=== PATIENT | male | born 1945 | race Caucasian/White ===

== ENCOUNTER 2017-08-06 18:47 | Inpatient (IN) | payer OTHER, MEDICARE ==
[~2017-08-06] VITALS: Ht 182.9 cm; Wt 147.4 kg
[2017-08-06 19:38] LABS: BASOPHILS % 0.4 % (0.0-1.0); EOSINOPHILS % 0.5 % (0.0-6.0); HEMATOCRIT 44.4 % (38.2-49.6); HEMOGLOBIN 15.3 g/dL (14.0-18.0); LYMPHOCYTES # (AUTO) 0.7 (1.0-3.2); LYMPHOCYTES % 9.3 % (18.0-39.1); MEAN CORPUSCULAR HEMOGLOBIN 32.1 pg (28-32); MEAN CORPUSCULAR HGB CONC 34.5 g/dL (31-35); MEAN CORPUSCULAR VOLUME 93.1 fL (81-99); MONOCYTES # (AUTO) 0.6 (0.2-0.8); MONOCYTES % 8.1 % (4.4-11.3); NEUTROPHILS # (AUTO) 6.2 (2.1-6.9); NEUTROPHILS % 81.4 % (38.7-80.0); PLATELET COUNT 231 x10e3/uL (140-360); RED BLOOD COUNT 4.77 x10e6/uL (4.3-5.7); RED CELL DISTRIBUTION WIDTH 12.1 % (11.7-14.4)
[2017-08-06 19:49] LABS: INR 1.06
[2017-08-06 19:57] LABS: ALANINE AMINOTRANSFERASE 26 IU/L (0-55); ALBUMIN 3.2 g/dL (3.5-5.0); ALBUMIN/GLOBULIN RATIO 0.9 (0.8-2.0); ALKALINE PHOSPHATASE 72 IU/L (40-150); ANION GAP 12.8 mmol/L (8-16); BLOOD UREA NITROGEN 10 mg/dL (7-26); BUN/CREATININE RATIO 10 (6-25); CALCIUM 9.1 mg/dL (8.4-10.2); CARBON DIOXIDE 24 mmol/L (22-29); CHLORIDE 99 mmol/L (98-107); CREATINE KINASE 82 IU/L (30-200); CREATININE, SERUM 1.05 mg/dL (0.72-1.25); EST GLOMERULAR FILTRATION RATE > 60 ML/MIN (60-); GLUCOSE 306 mg/dL (74-118); MAGNESIUM 1.4 MG/DL (1.3-2.1); POTASSIUM 3.8 mmol/L (3.5-5.1); SODIUM 132 mmol/L (136-145)
[2017-08-06] MEDS ORDERED: MORPHINE SULFATE 2 MG/ML SYR IV PRN (20:00)
[2017-08-06] MEDS ORDERED: SODIUM CHLORIDE FLUSH 10 ML SYR INJ PRN (20:00)
[2017-08-06] MEDS ORDERED: DEXTROSE 50% SYRINGE 50 ML IV PRN (20:00)
[2017-08-06] MEDS ORDERED: ONDANSETRON HCL INJ 2 MG/ML VIAL IV PRN (20:00)
[2017-08-06 20:04] LABS: B-TYPE NATRIURETIC PEPTIDE2 126.5 pg/mL (0-100)
[2017-08-06] MEDS: VANCOMYCIN 1GM/NS 250 ML 250 ML IV SCH (20:15)
[2017-08-06 20:17] LABS: THYROID STIMULATING HORMONE 3.021 uIU/mL (0.350-4.940)
--- NOTE | 2017-08-06 20:18 | Diagnostic Imaging Report ---
CHEST SINGLE (PORTABLE), 08/06/2017 7:02 PM Technique: CHEST SINGLE (PORTABLE) Comparison: None available. Clinical history: Per patient, elevated blood sugar Findings: See Impression Impression: Limited by portable technique and motion. 1. Prominent cardiomediastinal silhouette, accentuated by portable technique 2. No consolidation. 3. No pleural effusion or pneumothorax. Signed by: Dr Ashly Wills MD on 08/06/2017 8:14 PM
[2017-08-06] MEDS ORDERED: INSULIN LISPRO 100 UNIT/1 ML 3ML VIAL SQ SCH (20:30)
[2017-08-06 21:12] VITALS: BP 109/58
[2017-08-06 21:15] VITALS: BP 109/58
[2017-08-06] MEDS: INSULIN REGULAR, HUMAN 100 UNIT/1 ML 3ML VIAL SQ SCH (22:10)
[2017-08-06] MEDS ORDERED: SODIUM CHLORIDE 0.9% 250ML 250 ML ONE (22:40)
[2017-08-06] MEDS: PIPER-TAZ 3.375 GM 50 ML IV SCH (23:01)
[2017-08-07] VITALS (8 sets, daily range): BP systolic 108–137; BP diastolic 56–68
[2017-08-07] MEDS: PIPER-TAZ 3.375 GM 50 ML IV SCH ×3 (05:16→22:30)
[2017-08-07 05:51] LABS: CLARITY,URINE CLEAR (CLEAR); COLOR,URINE YELLOW (YELLOW)
[2017-08-07 05:52] LABS: BILIRUBIN,URINE NEGATIVE (NEGATIVE); KETONES,URINE TRACE (NEGATIVE); LEUKOCYTE ESTERASE ,URINE NEGATIVE (NEGATIVE); NITRITE,URINE NEGATIVE (NEGATIVE); PROTEIN,URINE DIPSTICK NEGATIVE (NEGATIVE); URINE UROBILINOGEN 0.2 mg/dL (0.2 - 1)
[2017-08-07 05:54] LABS: BACTERIA,URINE FEW /HPF; RBC,URINE 0-5 /HPF (0-5); WBC,URINE (MAN) 0-5 /HPF (0-5)
[2017-08-07 05:55] LABS: EPITHELIAL CELLS,URINE RARE /LPF; YEAST,URINE FEW
[2017-08-07] MEDS ORDERED: ACETAMINOPHEN 325 MG TAB PO PRN (06:00)
[2017-08-07 06:33] LABS: BASOPHILS % 0.5 % (0.0-1.0); EOSINOPHILS # (AUTO) 0.1 (0.0-0.4); EOSINOPHILS % 1.3 % (0.0-6.0); HEMATOCRIT 41.2 % (38.2-49.6); HEMOGLOBIN 13.9 g/dL (14.0-18.0); LYMPHOCYTES # (AUTO) 0.9 (1.0-3.2); LYMPHOCYTES % 14.9 % (18.0-39.1); MEAN CORPUSCULAR HEMOGLOBIN 31.7 pg (28-32); MEAN CORPUSCULAR HGB CONC 33.7 g/dL (31-35); MEAN CORPUSCULAR VOLUME 93.8 fL (81-99); MONOCYTES # (AUTO) 0.6 (0.2-0.8); MONOCYTES % 10.1 % (4.4-11.3); NEUTROPHILS # (AUTO) 4.5 (2.1-6.9); PLATELET COUNT 203 x10e3/uL (140-360); RED BLOOD COUNT 4.39 x10e6/uL (4.3-5.7); RED CELL DISTRIBUTION WIDTH 12.2 % (11.7-14.4)
[2017-08-07 06:45] LABS: ALANINE AMINOTRANSFERASE 24 IU/L (0-55); ALBUMIN 2.7 g/dL (3.5-5.0); ALBUMIN/GLOBULIN RATIO 0.9 (0.8-2.0); ALKALINE PHOSPHATASE 61 IU/L (40-150); ANION GAP 11.7 mmol/L (8-16); BLOOD UREA NITROGEN 9 mg/dL (7-26); BUN/CREATININE RATIO 10 (6-25); CALCIUM 8.4 mg/dL (8.4-10.2); CARBON DIOXIDE 26 mmol/L (22-29); CHLORIDE 101 mmol/L (98-107); CREATININE, SERUM 0.92 mg/dL (0.72-1.25); EST GLOMERULAR FILTRATION RATE > 60 ML/MIN (60-); GLUCOSE 201 mg/dL (74-118); POTASSIUM 3.7 mmol/L (3.5-5.1); SODIUM 135 mmol/L (136-145)
[2017-08-07] MEDS: INSULIN REGULAR, HUMAN 100 UNIT/1 ML 3ML VIAL SQ SCH ×4 (07:30→21:00)
[2017-08-07] MEDS: VANCOMYCIN 1GM/NS 250 ML 250 ML IV SCH ×2 (08:14→20:30)
[2017-08-07] MEDS: GLIMEPIRIDE 2 MG TAB PO SCH (08:14)
--- NOTE | 2017-08-07 15:48 | Consultation ---
DATE OF CONSULTATION: REASON FOR CONSULTATION: Cellulitis of the legs. HISTORY OF PRESENT ILLNESS: This patient, who is a 71-year-old white male, who has a history of obesity, history of lymphedema, history of venous stasis ulcers before, recurrent cellulitis of bilateral lower extremities before, comes in with redness and swelling of his legs with ulcers and drainage. This is the worst time he has ever had this. This patient has obesity, diabetes mellitus, history of cellulitis and venostasis before. He comes in with the above complaint, which has been going on for the last few days. The patient was sent to the emergency room where he was admitted. The patient is lying in bed comfortably at the present time. His is at the bedside. PAST MEDICAL HISTORY: Obesity and diabetes mellitus as above. PAST SURGICAL HISTORY: Cataract surgery. ALLERGIES: NKA. SOCIAL HISTORY: There is smoking but no drug abuse or alcohol abuse. FAMILY HISTORY: Hypertension, diabetes. REVIEW OF SYSTEMS HEENT: There is no headache, visual changes, hearing changes. GI: There is no nausea, no vomiting, no diarrhea. CARDIAC: There is no arrhythmia. NEURO: No seizure activity. SKIN: There is no rash except for what is mentioned above. LABORATORY DATA: Reviewed. His chart was also reviewed. White count 6.1, hemoglobin 13.9, sodium 135, potassium 3.7, creatinine 0.92. His glucose was 268. MEDICATIONS: He is currently on Zosyn, insulin, Amaryl, vancomycin, Tylenol. REVIEW OF SYSTEMS: All systems are within normal limits otherwise. PHYSICAL EXAMINATION GENERAL: He is currently alert and oriented. Does not seem to be in acute distress. VITALS: Stable, currently afebrile. HEENT: Not icteric. NECK: Supple. CHEST: Clear. HEART: S1 and S2. No murmur. ABDOMEN: Soft, obese. EXTREMITIES: Legs have erythema, edema and induration. There are ulcers noted on bilateral lower extremities. Wound care was present. Please refer to wound care documentation. IMPRESSION AND PLAN 1. Venous stasis ulcer, diabetes, infection of venous stasis ulcer. Agree with vancomycin and Zosyn. Agree with wound care. 2. Concerned about congestive heart failure. Concerned about fluid overload. Will discuss with Dr. Huerta. 3. Smoking. Discussed with the patient and his that he must quit smoking. It is imperative. 4. Diabetes. 5. Will follow. Job#: [id number] MH
[2017-08-08] VITALS (8 sets, daily range): BP systolic 110–147; BP diastolic 54–83
[2017-08-08] MEDS: PIPER-TAZ 3.375 GM 50 ML IV SCH ×3 (05:26→21:45)
[2017-08-08] MEDS: INSULIN REGULAR, HUMAN 100 UNIT/1 ML 3ML VIAL SQ SCH ×4 (07:30→22:45)
[2017-08-08] MEDS: VANCOMYCIN 1GM/NS 250 ML 250 ML IV SCH ×2 (08:07→20:02)
[2017-08-08] MEDS: GLIMEPIRIDE 2 MG TAB PO SCH (08:07)
[2017-08-08] MEDS: FUROSEMIDE INJ 10 MG/ML 2 ML VIAL IV SCH (08:07)
[2017-08-08] MEDS: MUPIROCIN 2% OINT 22 GM TUBE TOP SCH (08:08)
[2017-08-08] MEDS ORDERED: SODIUM CHLORIDE 0.9% 250ML 250 ML ONE (15:53)
--- NOTE | 2017-08-08 17:12 | Diagnostic Imaging Report ---
PROCEDURE: A single AP view of the chest. COMPARISON: Patients [facility], DX, CHEST SINGLE (PORTABLE), 08/06/2017, 19:36. INDICATIONS: picc line placement FINDINGS: See impression. IMPRESSION: 1. interval placement of right-sided PICC line, with distal tip projecting in the proximal to mid SVC. 2. Otherwise, no significant interval change. Diego Phillips M.D. Dictated by: Diego Phillips M.D. on 08/08/2017 at 17:16 Electronically approved by: Diego Phillips M.D. on 08/08/2017 at 17:16
[2017-08-09] VITALS (7 sets, daily range): BP systolic 97–188; BP diastolic 45–92
[2017-08-09] MEDS: PIPER-TAZ 3.375 GM 50 ML IV SCH ×3 (05:37→21:09)
[2017-08-09] MEDS: GLIMEPIRIDE 2 MG TAB PO SCH (08:30)
[2017-08-09] MEDS: INSULIN REGULAR, HUMAN 100 UNIT/1 ML 3ML VIAL SQ SCH ×4 (08:30→21:00)
[2017-08-09] MEDS: FUROSEMIDE INJ 10 MG/ML 2 ML VIAL IV SCH (08:30)
[2017-08-09] MEDS: VANCOMYCIN 1GM/NS 250 ML 250 ML IV SCH (08:30)
[2017-08-09] MEDS: VANCOMYCIN HCL 1.25 GM in SODIUM CHLORIDE 0.9% 250ML 300 ML IV SCH ×2 (10:15→22:14)
[2017-08-09] MEDS: MUPIROCIN 2% OINT 22 GM TUBE TOP SCH (12:30)
[2017-08-09] MEDS ORDERED: SODIUM CHLORIDE 0.9% 250ML 250 ML ONE (14:45)
[2017-08-09] MEDS: DIPHENHYDRAMINE HCL INJ 50 MG/ML VIAL IV PRN (21:34)
[2017-08-10] VITALS (7 sets, daily range): BP systolic 117–148; BP diastolic 56–83
[2017-08-10] MEDS: PIPER-TAZ 3.375 GM 50 ML IV SCH ×3 (06:34→21:37)
[2017-08-10] MEDS: INSULIN REGULAR, HUMAN 100 UNIT/1 ML 3ML VIAL SQ SCH ×4 (07:40→21:00)
[2017-08-10] MEDS: FUROSEMIDE INJ 10 MG/ML 2 ML VIAL IV SCH (08:05)
[2017-08-10] MEDS: GLIMEPIRIDE 2 MG TAB PO SCH (08:05)
[2017-08-10] MEDS: DIPHENHYDRAMINE HCL INJ 50 MG/ML VIAL IV PRN ×2 (09:12→16:40)
[2017-08-10] MEDS: VANCOMYCIN HCL 1.25 GM in SODIUM CHLORIDE 0.9% 250ML 300 ML IV SCH ×2 (10:05→22:40)
[2017-08-10] MEDS: MUPIROCIN 2% OINT 22 GM TUBE TOP SCH (14:30)
[2017-08-11 00:37] VITALS: BP 166/52
[2017-08-11 00:41] VITALS: BP 166/52
[2017-08-11 04:34] VITALS: BP 135/66
[2017-08-11] MEDS: PIPER-TAZ 3.375 GM 50 ML IV SCH (06:35)
[2017-08-11] MEDS ORDERED: LASIX20 MG PO (07:39)
[2017-08-11] MEDS ORDERED: GLIMEPIRIDE2 MG PO (07:39)
[2017-08-11 08:34] VITALS: BP 145/72
[2017-08-11] MEDS: DIPHENHYDRAMINE HCL INJ 50 MG/ML VIAL IV PRN (09:25)
[2017-08-11] MEDS: FUROSEMIDE INJ 10 MG/ML 2 ML VIAL IV SCH (09:25)
[2017-08-11] MEDS: GLIMEPIRIDE 2 MG TAB PO SCH (09:25)
[2017-08-11] MEDS: VANCOMYCIN HCL 1.25 GM in SODIUM CHLORIDE 0.9% 250ML 300 ML IV SCH (09:25)
[2017-08-11] MEDS: MUPIROCIN 2% OINT 22 GM TUBE TOP SCH (09:25)
[2017-08-11] MEDS: INSULIN REGULAR, HUMAN 100 UNIT/1 ML 3ML VIAL SQ SCH (09:39)
[2017-08-11 10:48] VITALS: BP 145/72
[2017-08-11 11:30] VITALS: BP 163/79
== END 2017-08-11 12:00 | disposition home or self-care (01) | DRG 602 ==
LOC: ER 18:47 → ERHOLD 20:14 → MED/SURG2 21:35
PROVIDERS: ADMIT Internal Medicine; ATTEND Internal Medicine
PROC: 02HV33Z Insertion of Infusion Device into Superior Vena Cava, Percutaneous Approach (ICD-10-PCS; principal; 2017-08-08)
DX: L03.116 Cellulitis of left lower limb (principal); I50.33 Acute on chronic diastolic (congestive) heart failure; L97.829 Non-pressure chronic ulcer of other part of left lower leg with unspecified severity; L97.819 Non-pressure chronic ulcer of other part of right lower leg with unspecified severity; Z68.41 Body mass index [BMI] 40.0-44.9, adult; L03.115 Cellulitis of right lower limb; E11.65 Type 2 diabetes mellitus with hyperglycemia; E66.9 Obesity, unspecified; I87.8 Other specified disorders of veins; I83.018 Varicose veins of right lower extremity with ulcer other part of lower leg; I83.028 Varicose veins of left lower extremity with ulcer other part of lower leg; F17.210 Nicotine dependence, cigarettes, uncomplicated; I89.0 Lymphedema, not elsewhere classified; R21 Rash and other nonspecific skin eruption; I11.0 Hypertensive heart disease with heart failure
CPT/HCPCS: 36415; 36569; 71045; 74470; 80053; 80202; 81001; 82140; 82550; 82553; 82948; 83036; 83605; 83735; 83880; 84443; 84484; 85025; 85610; 85730; 87040; 87086; 93005; 93306; 99284; J1200; J1940; J2543; J3370; J7050

== ENCOUNTER 2021-06-18 12:04 | Inpatient (IN) | payer MEDICARE, BC ==
[~2021-06-18] VITALS: Ht 182.9 cm; Wt 192.8 kg
[~2021-06-18 12:04] MED LIST: GLIMEPIRIDE2 MG PO; LASIX20 MG PO
[2021-06-18] MEDS ORDERED: Vancomycin IV 1 GM in SODIUM CHLORIDE 0.9% 250ML 250 ML IV ONE ×2 (12:15→21:30)
[2021-06-18] MEDS ORDERED: ONDANSETRON HCL INJ 2MG/ML 2ML 2 MG/ML VIAL IV PRN (12:30)
[2021-06-18] MEDS ORDERED: SODIUM CHLORIDE 0.9% 1000ML 1,000 ML IV ONE ×2 (12:30→21:00)
[2021-06-18 13:23] LABS: BASOPHILS % 0.4 % (0.0-1.0); EOSINOPHILS # (AUTO) 0.2 (0.0-0.4); EOSINOPHILS % 2.3 % (0.0-6.0); HEMATOCRIT 35.8 % (38.2-49.6); HEMOGLOBIN 11.3 g/dL (14.0-18.0); LYMPHOCYTES # (AUTO) 0.6 (1.0-3.2); LYMPHOCYTES % 6.6 % (18.0-39.1); MEAN CORPUSCULAR HEMOGLOBIN 30.5 pg (28-32); MEAN CORPUSCULAR HGB CONC 31.6 g/dL (31-35); MEAN CORPUSCULAR VOLUME 96.5 fL (81-99); MONOCYTES # (AUTO) 0.6 (0.2-0.8); MONOCYTES % 6.6 % (4.4-11.3); NEUTROPHILS # (AUTO) 7.5 (2.1-6.9); NEUTROPHILS % 82.3 % (38.7-80.0); PLATELET COUNT 302 x10e3/uL (140-360); RED BLOOD COUNT 3.71 x10e6/uL (4.3-5.7); RED CELL DISTRIBUTION WIDTH 17.8 % (11.7-14.4)
[2021-06-18 13:37] LABS: ALBUMIN 1.9 g/dL (3.5-5.0); ALBUMIN/GLOBULIN RATIO 0.5 (0.8-2.0); ANION GAP 10.9 mmol/L (8-16); CALCIUM 7.7 mg/dL (8.4-10.2); CREATININE, SERUM 1.32 mg/dL (0.72-1.25)
[2021-06-18 13:38] LABS: POTASSIUM 2.9 mmol/L (3.5-5.1)
[2021-06-18 13:43] LABS: CREATINE KINASE MB 1.8 ng/mL (0-5.0)
[2021-06-18 15:00] VITALS: BP 124/75
[2021-06-18] MEDS ORDERED: LEVOTHYROXINE50 MCG PO (15:39)
[2021-06-18] MEDS ORDERED: HYDROXYZINE HCL25 MG PO (15:39)
[2021-06-18] MEDS ORDERED: ACTOS15 MG PO (15:39)
[2021-06-18] MEDS ORDERED: MINOCYCLINE HCL50 MG PO (15:39)
[2021-06-18] MEDS ORDERED: ULTRAM 50MG50 MG PO (15:39)
[2021-06-18] MEDS ORDERED: ZOLPIDEM TARTRAT5 MG PO (15:39)
[2021-06-18] MEDS ORDERED: METOLAZONE5 MG PO (15:49)
[2021-06-18] MEDS ORDERED: DEXTROSE 50% SYRINGE 50 ML IV STA (16:12)
[2021-06-18] MEDS ORDERED: DEXTROSE 50% SYRINGE 50 ML IV ONE (16:29)
[2021-06-18 16:39] VITALS: BP 131/94
[2021-06-18 18:40] LABS: INR 0.99; PROTHROMBIN TIME 10.9 seconds (11.9-14.5)
[2021-06-18 18:41] LABS: PARTIAL THROMBOPLASTIN TIME 26.4 seconds (23.8-35.5)
[2021-06-18 20:00] VITALS: BP 112/53
[2021-06-18 20:11] LABS: ANION GAP 11.8 mmol/L (8-16); CALCIUM 7.8 mg/dL (8.4-10.2); CREATININE, SERUM 1.19 mg/dL (0.72-1.25)
[2021-06-18 20:13] LABS: POTASSIUM 2.8 mmol/L (3.5-5.1)
[2021-06-18] MEDS ORDERED: POTASSIUM CHLORIDE 20 MEQ TAB CR PO STA (20:27)
[2021-06-18 20:30] LABS: CREATINE KINASE MB 1.7 ng/mL (0-5.0)
[2021-06-18] MEDS: DEXTROSE 5%/0.9% SOD CHL 1,000 ML IV SCH (20:30)
[2021-06-18] MEDS: DEXTROSE 50% SYRINGE 50 ML IV PRN (20:38)
[2021-06-18 21:09] VITALS: BP 131/94
[2021-06-18] MEDS: Morphine 4mg Syringe 4 MG/ML INJ IV PRN (22:45)
[2021-06-19] VITALS (8 sets, daily range): BP systolic 71–127; BP diastolic 42–84
[2021-06-19] MEDS ORDERED: HYDROCODONE/APAP 10MG-325MG TAB PO PRN (04:00)
[2021-06-19 06:33] LABS: BASOPHILS % 0.5 % (0.0-1.0); EOSINOPHILS # (AUTO) 0.1 (0.0-0.4); EOSINOPHILS % 1.3 % (0.0-6.0); HEMOGLOBIN 11.8 g/dL (14.0-18.0); LYMPHOCYTES # (AUTO) 0.9 (1.0-3.2); MEAN CORPUSCULAR HEMOGLOBIN 31.5 pg (28-32); MEAN CORPUSCULAR HGB CONC 31.9 g/dL (31-35); MEAN CORPUSCULAR VOLUME 98.7 fL (81-99); MONOCYTES # (AUTO) 1.1 (0.2-0.8); MONOCYTES % 13.3 % (4.4-11.3); NEUTROPHILS % 72.4 % (38.7-80.0); PLATELET COUNT 266 x10e3/uL (140-360); RED BLOOD COUNT 3.75 x10e6/uL (4.3-5.7); RED CELL DISTRIBUTION WIDTH 18.1 % (11.7-14.4)
[2021-06-19 06:59] LABS: CREATINE KINASE MB 1.8 ng/mL (0-5.0)
[2021-06-19] MEDS: DEXTROSE 50% SYRINGE 50 ML IV PRN ×4 (07:20→22:59)
[2021-06-19 07:22] LABS: ALBUMIN 1.8 g/dL (3.5-5.0); ALBUMIN/GLOBULIN RATIO 0.5 (0.8-2.0); ANION GAP 12.1 mmol/L (8-16); CALCIUM 7.7 mg/dL (8.4-10.2); MAGNESIUM 2.1 MG/DL (1.3-2.1); POTASSIUM 3.1 mmol/L (3.5-5.1)
[2021-06-19] MEDS ORDERED: ALBUTEROL/IPRATROPIUM 3 ML NEB ONE (07:53)
[2021-06-19] MEDS: ALBUTEROL/IPRATROPIUM 3 ML NEB NEB SCH ×5 (08:00→23:30)
[2021-06-19] MEDS ORDERED: ALBUTEROL SULF 0.083% NEB SOLN 3 ML NEB ONE (08:04)
[2021-06-19] MEDS ORDERED: DEXTROSE 50% SYRINGE 50 ML IV STA (08:04)
[2021-06-19] MEDS ORDERED: POTASSIUM CHLORIDE 20 MEQ TAB CR PO STA (08:14)
[2021-06-19] MEDS ORDERED: FUROSEMIDE INJ 10 MG/ML 2 ML VIAL IV ONE (08:45)
[2021-06-19] MEDS: LEVOTHYROXINE SODIUM 50 MCG TAB PO SCH (09:00)
[2021-06-19] MEDS: Vancomycin IV 1 GM in SODIUM CHLORIDE 0.9% 250ML 250 ML IV SCH ×2 (10:59→22:37)
[2021-06-19 14:33] LABS: CREATINE KINASE MB 1.1 ng/mL (0-5.0)
[2021-06-19] MEDS: DEXTROSE 5%/0.9% SOD CHL 1,000 ML IV SCH (22:37)
[2021-06-19] MEDS: Morphine 4mg Syringe 4 MG/ML INJ IV PRN (22:59)
[2021-06-20] VITALS (28 sets, daily range): BP systolic 57–161; BP diastolic 30–79
[2021-06-20] MEDS: DEXTROSE 5%/0.9% SOD CHL 1,000 ML IV SCH (00:33)
[2021-06-20] MEDS: ALBUTEROL/IPRATROPIUM 3 ML NEB NEB SCH ×6 (03:00→23:50)
[2021-06-20] MEDS: DEXTROSE 50% SYRINGE 50 ML IV PRN ×2 (04:44→11:00)
[2021-06-20] MEDS ORDERED: DEXTROSE 10% 1,000 ML IV SCH (05:15)
[2021-06-20] MEDS: BISACODYL 5 MG TAB EC PO SCH ×2 (05:52→10:51)
[2021-06-20] MEDS ORDERED: DEXTROSE 5%/0.9% SOD CHL 1,000 ML IV SCH (06:00)
[2021-06-20] MEDS: LEVOTHYROXINE SODIUM 50 MCG TAB PO SCH (09:13)
[2021-06-20] MEDS: POTASSIUM CHLORIDE 10MEQ EA PO SCH (09:13)
[2021-06-20] MEDS: FUROSEMIDE INJ 10 MG/ML 4 ML VIAL IV SCH ×2 (09:13→20:58)
[2021-06-20] MEDS ORDERED: DEXTROSE 10% 1,000 ML IV ONE (09:30)
[2021-06-20] MEDS ORDERED: METHYLPREDNISOLONE SOD SUCC 40 MG/ML VIAL 1ML IV ONE (10:00)
[2021-06-20] MEDS ORDERED: BISACODYL 5 MG TAB EC PO PRN ×2 (11:00→19:45)
[2021-06-20] MEDS: Vancomycin IV 1 GM in SODIUM CHLORIDE 0.9% 250ML 250 ML IV SCH ×2 (11:05→22:58)
[2021-06-20 14:56] LABS: ABG HCO3 36 mmol/L (22-26); ABG PCO2 61 mmHg (35-45); ABG PH 7.37 (7.35-7.45); ABG PO2 85 mmHg (80-105); ABG TCO2 37
[2021-06-20] MEDS: DEXMEDETOMIDINE 100 ML IV PRN (16:23)
[2021-06-20] MEDS: ENOXAPARIN SOD INJ 60 MG/0.6 ML SYR SC SCH (17:00)
[2021-06-20] MEDS: DEXTROSE 5% 1,000 ML IV SCH (18:46)
[2021-06-20] MEDS: BUDESONIDE 0.5MG/2 ML NEB INH SCH (19:30)
[2021-06-20] MEDS: METHYLPREDNISOLONE SOD SUCC 40 MG/ML VIAL 1ML IV SCH (20:59)
[2021-06-21] VITALS (23 sets, daily range): BP systolic 86–182; BP diastolic 43–121
[2021-06-21] MEDS: ALBUTEROL/IPRATROPIUM 3 ML NEB NEB SCH ×6 (03:20→23:47)
[2021-06-21 05:47] LABS: BASOPHILS % 0.2 % (0.0-1.0); HEMATOCRIT 33.2 % (38.2-49.6); HEMOGLOBIN 10.3 g/dL (14.0-18.0); LYMPHOCYTES # (AUTO) 1.1 (1.0-3.2); LYMPHOCYTES % 6.7 % (18.0-39.1); MEAN CORPUSCULAR HEMOGLOBIN 30.4 pg (28-32); MEAN CORPUSCULAR VOLUME 97.9 fL (81-99); MONOCYTES # (AUTO) 0.6 (0.2-0.8); NEUTROPHILS % 88.2 % (38.7-80.0); PLATELET COUNT 226 x10e3/uL (140-360); RED BLOOD COUNT 3.39 x10e6/uL (4.3-5.7); RED CELL DISTRIBUTION WIDTH 17.8 % (11.7-14.4)
[2021-06-21 06:06] LABS: ALBUMIN 1.5 g/dL (3.5-5.0); ALBUMIN/GLOBULIN RATIO 0.4 (0.8-2.0); ANION GAP 12.4 mmol/L (8-16); CALCIUM 7.2 mg/dL (8.4-10.2); CREATININE, SERUM 1.18 mg/dL (0.72-1.25); MAGNESIUM 1.8 MG/DL (1.3-2.1); PHOSPHORUS 2.9 MG/DL (2.3-4.7); POTASSIUM 3.4 mmol/L (3.5-5.1)
[2021-06-21] MEDS: BUDESONIDE 0.5MG/2 ML NEB INH SCH ×2 (06:34→19:25)
[2021-06-21] MEDS: METHYLPREDNISOLONE SOD SUCC 40 MG/ML VIAL 1ML IV SCH ×2 (08:02→21:45)
[2021-06-21] MEDS: FUROSEMIDE INJ 10 MG/ML 4 ML VIAL IV SCH ×2 (08:02→21:45)
[2021-06-21] MEDS: POTASSIUM CHLORIDE 10MEQ EA PO SCH (08:02)
[2021-06-21] MEDS: LEVOTHYROXINE SODIUM 50 MCG TAB PO SCH (08:02)
[2021-06-21] MEDS: Vancomycin IV 1 GM in SODIUM CHLORIDE 0.9% 250ML 250 ML IV SCH ×2 (10:50→23:15)
[2021-06-21] MEDS: DEXTROSE 5% 1,000 ML IV SCH (14:00)
[2021-06-21] MEDS: AMMONIUM LACTATE 12% LOTION 225GM BTL TOP SCH (17:00)
[2021-06-21] MEDS: ENOXAPARIN SOD INJ 60 MG/0.6 ML SYR SC SCH (17:13)
[2021-06-21] MEDS ORDERED: LORAZEPAM INJ 2 MG/ML VIAL IV PRN (21:15)
[2021-06-21] MEDS: DEXMEDETOMIDINE 100 ML IV PRN (22:00)
[2021-06-21] MEDS ORDERED: SODIUM CHLORIDE 0.9% 250ML 250 ML ONE (22:35)
[2021-06-22] VITALS (42 sets, daily range): BP systolic 103–144; BP diastolic 61–87
[2021-06-22] MEDS ORDERED: ZIPRASIDONE 20 MG VIAL IM PRN (01:30)
[2021-06-22] MEDS ORDERED: DEXMEDETOMIDINE IV ONE ×2 (02:45→06:54)
[2021-06-22] MEDS ORDERED: [UNRECOGNIZED DRUG - OTHER] IV ONE ×2 (02:45→06:54)
[2021-06-22] MEDS: DEXMEDETOMIDINE 100 ML IV PRN ×3 (03:00→23:24)
[2021-06-22] MEDS: ALBUTEROL/IPRATROPIUM 3 ML NEB NEB SCH ×6 (03:30→23:42)
[2021-06-22 06:16] LABS: BASOPHILS % 0.3 % (0.0-1.0); EOSINOPHILS % 0.1 % (0.0-6.0); LYMPHOCYTES # (AUTO) 0.9 (1.0-3.2); LYMPHOCYTES % 6.6 % (18.0-39.1); MEAN CORPUSCULAR HEMOGLOBIN 30.9 pg (28-32); MEAN CORPUSCULAR HGB CONC 31.6 g/dL (31-35); MEAN CORPUSCULAR VOLUME 97.9 fL (81-99); MONOCYTES # (AUTO) 0.6 (0.2-0.8); MONOCYTES % 3.9 % (4.4-11.3); NEUTROPHILS # (AUTO) 12.5 (2.1-6.9); NEUTROPHILS % 87.6 % (38.7-80.0); PLATELET COUNT 224 x10e3/uL (140-360); RED BLOOD COUNT 3.88 x10e6/uL (4.3-5.7); RED CELL DISTRIBUTION WIDTH 17.4 % (11.7-14.4)
[2021-06-22 06:54] LABS: ALBUMIN 1.7 g/dL (3.5-5.0); ALBUMIN/GLOBULIN RATIO 0.4 (0.8-2.0); ANION GAP 12.8 mmol/L (8-16); CALCIUM 7.5 mg/dL (8.4-10.2); CREATININE, SERUM 1.31 mg/dL (0.72-1.25); POTASSIUM 3.8 mmol/L (3.5-5.1)
[2021-06-22] MEDS: BUDESONIDE 0.5MG/2 ML NEB INH SCH ×2 (07:16→19:40)
[2021-06-22] MEDS: POTASSIUM CHLORIDE 10MEQ EA PO SCH (08:10)
[2021-06-22] MEDS: QUETIAPINE FUMARATE 25 MG TAB PO SCH ×2 (08:11→16:50)
[2021-06-22] MEDS: LEVOTHYROXINE SODIUM 50 MCG TAB PO SCH (08:11)
[2021-06-22] MEDS: METHYLPREDNISOLONE SOD SUCC 40 MG/ML VIAL 1ML IV SCH ×2 (08:12→21:40)
[2021-06-22] MEDS: AMMONIUM LACTATE 12% LOTION 225GM BTL TOP SCH ×2 (08:12→16:50)
[2021-06-22] MEDS: FUROSEMIDE INJ 10 MG/ML 4 ML VIAL IV SCH ×2 (08:12→21:40)
[2021-06-22] MEDS: Vancomycin IV 1 GM in SODIUM CHLORIDE 0.9% 250ML 250 ML IV SCH ×2 (11:25→23:22)
[2021-06-22] MEDS ORDERED: NYSTATIN 15 GM POWDER UD BTL TOP PRN (13:15)
[2021-06-22] MEDS: ENOXAPARIN SOD INJ 60 MG/0.6 ML SYR SC SCH (16:50)
[2021-06-23] VITALS (47 sets, daily range): BP systolic 105–142; BP diastolic 49–78
[2021-06-23] MEDS: ALBUTEROL/IPRATROPIUM 3 ML NEB NEB SCH ×6 (00:10→19:15)
[2021-06-23] MEDS: ACETAMINOPHEN 1000 MG/100 ML IV PRN ×3 (00:35→09:53)
[2021-06-23] MEDS: DEXMEDETOMIDINE 100 ML IV PRN (04:00)
[2021-06-23 05:20] LABS: BASOPHILS # (AUTO) 0.1 (0.0-0.1); BASOPHILS % 0.5 % (0.0-1.0); HEMATOCRIT 39.8 % (38.2-49.6); HEMOGLOBIN 12.6 g/dL (14.0-18.0); LYMPHOCYTES # (AUTO) 1.2 (1.0-3.2); LYMPHOCYTES % 8.8 % (18.0-39.1); MEAN CORPUSCULAR HEMOGLOBIN 30.7 pg (28-32); MEAN CORPUSCULAR HGB CONC 31.7 g/dL (31-35); MEAN CORPUSCULAR VOLUME 96.8 fL (81-99); MONOCYTES # (AUTO) 0.8 (0.2-0.8); MONOCYTES % 6.2 % (4.4-11.3); NEUTROPHILS # (AUTO) 10.7 (2.1-6.9); NEUTROPHILS % 81.4 % (38.7-80.0); PLATELET COUNT 253 x10e3/uL (140-360); RED BLOOD COUNT 4.11 x10e6/uL (4.3-5.7); RED CELL DISTRIBUTION WIDTH 17.2 % (11.7-14.4)
[2021-06-23 05:57] LABS: ALBUMIN 1.7 g/dL (3.5-5.0); ALBUMIN/GLOBULIN RATIO 0.4 (0.8-2.0); ANION GAP 12.6 mmol/L (8-16); CALCIUM 7.6 mg/dL (8.4-10.2); CREATININE, SERUM 1.54 mg/dL (0.72-1.25); POTASSIUM 3.6 mmol/L (3.5-5.1)
[2021-06-23 06:15] LABS: % IRON SATURATION 29 % (15-50); IRON 41 ug/dL (65-175); TOTAL IRON BINDING CAPACITY 140 ug/dL (261-478); TRANSFERRIN 100 mg/dL (174-364)
[2021-06-23] MEDS: BUDESONIDE 0.5MG/2 ML NEB INH SCH ×2 (07:50→19:15)
[2021-06-23] MEDS: LEVOTHYROXINE SODIUM 50 MCG TAB PO SCH (09:00)
[2021-06-23] MEDS: FUROSEMIDE INJ 10 MG/ML 4 ML VIAL IV SCH ×2 (09:00→20:10)
[2021-06-23] MEDS: QUETIAPINE FUMARATE 25 MG TAB PO SCH ×2 (09:00→17:00)
[2021-06-23] MEDS: AMMONIUM LACTATE 12% LOTION 225GM BTL TOP SCH ×2 (09:00→16:28)
[2021-06-23] MEDS: METHYLPREDNISOLONE SOD SUCC 40 MG/ML VIAL 1ML IV SCH (09:00)
[2021-06-23] MEDS: POTASSIUM CHLORIDE 10MEQ EA PO SCH (09:00)
[2021-06-23] MEDS: Vancomycin IV 1 GM in SODIUM CHLORIDE 0.9% 250ML 250 ML IV SCH (11:00)
[2021-06-23 15:10] LABS: FREE THYROXINE INDEX 1.3806 (1.4-3.8); THYROID STIMULATING HORMONE 6.769 uIU/mL (0.350-4.940)
[2021-06-23] MEDS: MEROPENEM 1 GM in SODIUM CHLORIDE 0.9% 100 ML IV SCH (16:00)
[2021-06-23] MEDS: ENOXAPARIN SOD INJ 60 MG/0.6 ML SYR SC SCH (16:28)
[2021-06-24] VITALS (10 sets, daily range): BP systolic 110–155; BP diastolic 55–93
[2021-06-24] MEDS: ALBUTEROL/IPRATROPIUM 3 ML NEB NEB SCH ×6 (03:30→23:00)
[2021-06-24] MEDS: MEROPENEM 1 GM in SODIUM CHLORIDE 0.9% 100 ML IV SCH ×2 (03:54→17:47)
[2021-06-24 05:03] LABS: BASOPHILS # (AUTO) 0.1 (0.0-0.1); BASOPHILS % 0.6 % (0.0-1.0); EOSINOPHILS % 0.1 % (0.0-6.0); HEMATOCRIT 37.8 % (38.2-49.6); HEMOGLOBIN 11.7 g/dL (14.0-18.0); LYMPHOCYTES # (AUTO) 1.5 (1.0-3.2); LYMPHOCYTES % 13.2 % (18.0-39.1); MEAN CORPUSCULAR HEMOGLOBIN 30.1 pg (28-32); MEAN CORPUSCULAR VOLUME 97.2 fL (81-99); MONOCYTES # (AUTO) 1.4 (0.2-0.8); MONOCYTES % 11.9 % (4.4-11.3); NEUTROPHILS # (AUTO) 8.1 (2.1-6.9); NEUTROPHILS % 71.6 % (38.7-80.0); PLATELET COUNT 234 x10e3/uL (140-360); RED BLOOD COUNT 3.89 x10e6/uL (4.3-5.7); RED CELL DISTRIBUTION WIDTH 17.2 % (11.7-14.4)
[2021-06-24 05:20] LABS: ALBUMIN 1.6 g/dL (3.5-5.0); ALBUMIN/GLOBULIN RATIO 0.4 (0.8-2.0); ANION GAP 13.7 mmol/L (8-16); CALCIUM 7.3 mg/dL (8.4-10.2); CREATININE, SERUM 1.27 mg/dL (0.72-1.25); MAGNESIUM 1.7 MG/DL (1.3-2.1)
[2021-06-24 05:24] LABS: POTASSIUM 2.7 mmol/L (3.5-5.1)
[2021-06-24] MEDS: Morphine 4mg Syringe 4 MG/ML INJ IV PRN (05:32)
[2021-06-24 05:51] LABS: CREATINE KINASE MB 1.3 ng/mL (0-5.0)
[2021-06-24] MEDS: BUDESONIDE 0.5MG/2 ML NEB INH SCH ×2 (07:20→18:15)
[2021-06-24] MEDS ORDERED: METHYLPREDNISOLONE SOD SUCC 40 MG/ML VIAL 1ML IV SCH (07:30)
[2021-06-24] MEDS: FUROSEMIDE INJ 10 MG/ML 4 ML VIAL IV SCH ×2 (07:40→20:57)
[2021-06-24] MEDS: QUETIAPINE FUMARATE 25 MG TAB PO SCH (07:50)
[2021-06-24] MEDS: LEVOTHYROXINE SODIUM 100 MCG TAB PO SCH (07:50)
[2021-06-24] MEDS: POTASSIUM CHLORIDE 10MEQ EA PO SCH (07:52)
[2021-06-24] MEDS: AMMONIUM LACTATE 12% LOTION 225GM BTL TOP SCH ×2 (09:48→17:47)
[2021-06-24] MEDS ORDERED: POTASSIUM CHLORIDE 20MEQ/100ML 200 ML IV ONE (11:45)
[2021-06-24] MEDS ORDERED: POTASSIUM CHLORIDE 20MEQ/100ML 100 ML IV ONE (12:15)
[2021-06-24] MEDS ORDERED: DEXTROSE 50% SYRINGE 50 ML IV PRN (13:00)
[2021-06-24] MEDS: INSULIN REGULAR, HUMAN 100 UNIT/1 ML SQ SCH ×2 (16:30→21:00)
[2021-06-24] MEDS: ENOXAPARIN SOD INJ 60 MG/0.6 ML SYR SC SCH (17:47)
[2021-06-24] MEDS ORDERED: SODIUM CHLORIDE 0.9% 250ML 250 ML ONE (18:44)
[2021-06-24] MEDS ORDERED: QUETIAPINE FUMARATE 25 MG TAB PO PRN (20:00)
[2021-06-25 04:00] VITALS: BP 131/58
[2021-06-25] MEDS: MEROPENEM 1 GM in SODIUM CHLORIDE 0.9% 100 ML IV SCH (04:57)
[2021-06-25 06:28] LABS: BASOPHILS # (AUTO) 0.1 (0.0-0.1); BASOPHILS % 0.6 % (0.0-1.0); EOSINOPHILS % 0.1 % (0.0-6.0); HEMATOCRIT 39.3 % (38.2-49.6); LYMPHOCYTES # (AUTO) 1.6 (1.0-3.2); LYMPHOCYTES % 11.3 % (18.0-39.1); MEAN CORPUSCULAR HEMOGLOBIN 30.5 pg (28-32); MEAN CORPUSCULAR HGB CONC 30.5 g/dL (31-35); MONOCYTES # (AUTO) 1.5 (0.2-0.8); MONOCYTES % 10.9 % (4.4-11.3); NEUTROPHILS # (AUTO) 10.4 (2.1-6.9); NEUTROPHILS % 74.2 % (38.7-80.0); PLATELET COUNT 269 x10e3/uL (140-360); RED BLOOD COUNT 3.93 x10e6/uL (4.3-5.7); RED CELL DISTRIBUTION WIDTH 17.5 % (11.7-14.4)
[2021-06-25 06:42] LABS: ANION GAP 13.3 mmol/L (8-16); CALCIUM 7.9 mg/dL (8.4-10.2); CREATININE, SERUM 1.39 mg/dL (0.72-1.25); POTASSIUM 3.3 mmol/L (3.5-5.1)
[2021-06-25] MEDS: INSULIN REGULAR, HUMAN 100 UNIT/1 ML SQ SCH ×2 (07:30→11:30)
[2021-06-25 08:00] VITALS: BP 107/73
[2021-06-25 08:02] VITALS: BP 107/73
[2021-06-25] MEDS: LEVOTHYROXINE SODIUM 100 MCG TAB PO SCH (09:00)
[2021-06-25] MEDS: FUROSEMIDE INJ 10 MG/ML 4 ML VIAL IV SCH (09:00)
[2021-06-25] MEDS ORDERED: POTASSIUM CHLORIDE 10MEQ EA PO SCH ×2 (09:00)
[2021-06-25] MEDS: AMMONIUM LACTATE 12% LOTION 225GM BTL TOP SCH (09:00)
[2021-06-25 11:35] VITALS: BP 121/67
[2021-06-25] MEDS ORDERED: FUROSEMIDE 40 MG TAB PO SCH (21:00)
== END 2021-06-25 13:16 | DRG 871 ==
LOC: ER 12:10 → ERHOLD 12:34 → MED/SURG3 14:50 → ICU 06-20 09:28 → MED/SURG3 06-24 13:45
PROVIDERS: ADMIT Internal Medicine; ATTEND Internal Medicine
PROC: 02HV33Z Insertion of Infusion Device into Superior Vena Cava, Percutaneous Approach (ICD-10-PCS; 2021-06-18)
PROC: 3E04329 Introduction of Other Anti-infective into Central Vein, Percutaneous Approach (ICD-10-PCS; 2021-06-19)
PROC: 5A09357 Assistance with Respiratory Ventilation, Less than 24 Consecutive Hours, Continuous Positive Airway Pressure (ICD-10-PCS; principal; 2021-06-22)
DX: A41.9 Sepsis, unspecified organism (principal); J96.01 Acute respiratory failure with hypoxia; G93.41 Metabolic encephalopathy; J69.0 Pneumonitis due to inhalation of food and vomit; I50.23 Acute on chronic systolic (congestive) heart failure; M86.8X7 Other osteomyelitis, ankle and foot; Z68.43 Body mass index [BMI] 50.0-59.9, adult; L03.116 Cellulitis of left lower limb; L03.115 Cellulitis of right lower limb; J44.1 Chronic obstructive pulmonary disease with (acute) exacerbation; I47.2 Ventricular tachycardia; I13.0 Hypertensive heart and chronic kidney disease with heart failure and stage 1 through stage 4 chronic kidney disease, or unspecified chronic kidney disease; N17.9 Acute kidney failure, unspecified; R65.20 Severe sepsis without septic shock; E11.649 Type 2 diabetes mellitus with hypoglycemia without coma; E11.22 Type 2 diabetes mellitus with diabetic chronic kidney disease; E11.69 Type 2 diabetes mellitus with other specified complication; I89.0 Lymphedema, not elsewhere classified; E87.6 Hypokalemia; E03.9 Hypothyroidism, unspecified; E66.01 Morbid (severe) obesity due to excess calories; I87.2 Venous insufficiency (chronic) (peripheral); F17.200 Nicotine dependence, unspecified, uncomplicated; Z66 Do not resuscitate; G47.33 Obstructive sleep apnea (adult) (pediatric); S00.80XA Unspecified superficial injury of other part of head, initial encounter; X58.XXXA Exposure to other specified factors, initial encounter; I48.0 Paroxysmal atrial fibrillation; N18.9 Chronic kidney disease, unspecified; Z79.899 Other long term (current) drug therapy; Z79.01 Long term (current) use of anticoagulants; Z89.421 Acquired absence of other right toe(s); S91.204A Unspecified open wound of right lesser toe(s) with damage to nail, initial encounter; E11.51 Type 2 diabetes mellitus with diabetic peripheral angiopathy without gangrene; S09.90XA Unspecified injury of head, initial encounter
CPT/HCPCS: 36415; 36569; 36600; 71045; 76604; 80048; 80053; 80202; 82550; 82553; 82805; 82948; 83540; 83735; 83880; 84100; 84436; 84443; 84466; 84479; 84484; 85025; 85610; 85730; 87040; 93005; 93306; 93970; 94640; 94660; 94799; 96361; 97139; 99251; 99285; J1650; J1940; J2060; J2185; J2270; J2405; J2543; J2920; J3370; J3480; J3486; J7042; J7050; J7070; J7799; U0002